=== PATIENT | female | born 1985 | race African-American/Black ===

== ENCOUNTER 2019-01-17 00:24 | Emergency (ER) | payer MEDICAID ==
[~2019-01-17] VITALS: Ht 154.9 cm; Wt 78.0 kg
[2019-01-17] MEDS ORDERED: ACETAMINOPHEN 325MG TABLET PO ONE (01:30)
[2019-01-17 01:31] LABS: CLARITY URINE CLEAR (CLEAR); COLOR URINE YELLOW (YELLOW); KETONES URINE NEGATIVE (NEGATIVE); LEUKOCYTE ESTERASE URINE 1+ (NEGATIVE); NITRITE URINE NEGATIVE (NEGATIVE); OCCULT BLOOD URINE NEGATIVE (NEGATIVE); PROTEIN URINE NEGATIVE (NEGATIVE); SPECIFIC GRAVITY URINE 1.006 (1.005-1.030); UROBILINOGEN URINE 0.2 E.U./dL (0.2-1.0)
[2019-01-17 01:43] LABS: HEMATOCRIT. 25.7 % (36.0-48.0); HEMOGLOBIN. 7.9 g/dL (12.0-16.0); MEAN CORPUSCULAR HEMOGLOBIN 19.9 pg (28.0-32.0); MEAN CORPUSCULAR VOLUME 64.7 fL (81.0-99.0); MEAN PLATELET VOLUME 6.5 fl (7.4-10.4); PLATELET 429 x1000/uL (130-400); RED BLOOD CELL COUNT 3.98 mill/uL (4.2-5.4); RED CELL DISTRIBUTION WIDTH 23.1 % (11.6-14.6)
[2019-01-17 01:50] LABS: CHLORIDE 110 mEq/L (98-107)
[2019-01-17 01:52] LABS: HCG SCREEN NEGATIVE
[2019-01-17 02:51] LABS: PLATELET ESTIMATE SLIGHTLY INCREASED
[2019-01-17 03:02] VITALS: BP 115/62
== END 2019-01-17 03:07 | disposition home or self-care (01) ==
LOC: ER 00:24
DX: D64.9 Anemia, unspecified (principal); N39.0 Urinary tract infection, site not specified; Z98.890 Other specified postprocedural states
CPT/HCPCS: 36415; 80048; 84703; 99283

== ENCOUNTER 2019-12-15 18:32 | Emergency (ER) | payer MEDICAID ==
[~2019-12-15] VITALS: Ht 157.5 cm; Wt 82.0 kg
[2019-12-15] MEDS ORDERED: IBUPROFEN 600MG TABLET PO ONE (19:30)
[2019-12-15] MEDS ORDERED: LIDOCAINE HCL/PF 1% 10 MG/ML 5ML VIAL IJ ONE (19:30)
[2019-12-15] MEDS ORDERED: AMOXICILLIN/POTASSIUM CLAVULANATE 875/125MG TAB PO ONE (19:30)
[2019-12-15 20:21] VITALS: BP 125/69
== END 2019-12-15 20:22 | disposition home or self-care (01) ==
LOC: ER 18:32
DX: H60.91 Unspecified otitis externa, right ear (principal); L02.811 Cutaneous abscess of head [any part, except face]
CPT/HCPCS: 10060; 99283; J3490

== ENCOUNTER 2020-04-23 21:56 | Emergency (ER) | payer MEDICAID ==
[~2020-04-23] VITALS: Ht 157.5 cm; Wt 79.0 kg
[2020-04-23] MEDS ORDERED: ACETAMINOPHEN 650MG/20.3ML UDC PO ONE (23:15)
[2020-04-23 23:39] LABS: CLARITY URINE CLOUDY (CLEAR); COLOR URINE YELLOW (YELLOW); KETONES URINE NEGATIVE (NEGATIVE); LEUKOCYTE ESTERASE URINE TRACE (NEGATIVE); NITRITE URINE NEGATIVE (NEGATIVE); OCCULT BLOOD URINE NEGATIVE (NEGATIVE); PROTEIN URINE TRACE (NEGATIVE); SPECIFIC GRAVITY URINE 1.038 (1.005-1.030)
[2020-04-23 23:43] LABS: HEMATOCRIT. 28.3 % (36.0-48.0); HEMOGLOBIN. 9.2 g/dL (12.0-16.0); MEAN CORPUSCULAR HEMOGLOBIN 22.5 pg (28.0-32.0); MEAN CORPUSCULAR VOLUME 68.8 fL (81.0-99.0); MEAN PLATELET VOLUME 7.1 fl (7.4-10.4); PLATELET 386 x1000/uL (130-400); RED BLOOD CELL COUNT 4.11 mill/uL (4.2-5.4); RED CELL DISTRIBUTION WIDTH 23.7 % (11.6-14.6)
[2020-04-23 23:52] LABS: CHLORIDE 106 mEq/L (98-107)
[2020-04-24 00:15] LABS: B-HCG QUANTITATIVE 60928 mIU/mL (<3)
[2020-04-24 00:25] LABS: PLATELET ESTIMATE NORMAL
[2020-04-24 01:59] VITALS: BP 126/70
== END 2020-04-24 03:00 | disposition home or self-care (01) ==
LOC: ER 21:56
DX: O23.41 Unspecified infection of urinary tract in pregnancy, first trimester (principal); O99.011 Anemia complicating pregnancy, first trimester; Z3A.14 14 weeks gestation of pregnancy; Z98.890 Other specified postprocedural states
CPT/HCPCS: 36415; 76801; 80053; 81003; 81025; 84702; 85025; 86850; 86900; 93005; 99285

== ENCOUNTER 2020-06-05 01:30 | Emergency (ER) | payer MEDICAID ==
[~2020-06-05] VITALS: Ht 154.9 cm; Wt 89.0 kg
[2020-06-05 02:47] LABS: HEMATOCRIT. 24.8 % (36.0-48.0); HEMOGLOBIN. 7.7 g/dL (12.0-16.0); MEAN CORPUSCULAR HEMOGLOBIN 21.8 pg (28.0-32.0); MEAN CORPUSCULAR VOLUME 70.4 fL (81.0-99.0); MEAN PLATELET VOLUME 7.1 fl (7.4-10.4); PLATELET 337 x1000/uL (130-400); RED BLOOD CELL COUNT 3.53 mill/uL (4.2-5.4); RED CELL DISTRIBUTION WIDTH 20.5 % (11.6-14.6)
[2020-06-05 02:50] LABS: CHLORIDE 108 mEq/L (98-107)
[2020-06-05 03:01] LABS: CLARITY URINE CLOUDY (CLEAR); COLOR URINE YELLOW (YELLOW); KETONES URINE NEGATIVE (NEGATIVE); LEUKOCYTE ESTERASE URINE 1+ (NEGATIVE); NITRITE URINE NEGATIVE (NEGATIVE); OCCULT BLOOD URINE NEGATIVE (NEGATIVE); PROTEIN URINE NEGATIVE (NEGATIVE); SPECIFIC GRAVITY URINE 1.029 (1.005-1.030); UROBILINOGEN URINE 0.2 E.U./dL (0.2-1.0)
[2020-06-05] MEDS ORDERED: CEPHALEXIN 250MG CAPSULE PO ONE (03:15)
[2020-06-05 04:40] VITALS: BP 119/71
[2020-06-05 14:43] LABS: PLATELET ESTIMATE NORMAL
== END 2020-06-05 04:59 | disposition home or self-care (01) ==
LOC: ER 01:30
DX: O23.31 Infections of other parts of urinary tract in pregnancy, first trimester (principal); O23.91 Unspecified genitourinary tract infection in pregnancy, first trimester; Z3A.14 14 weeks gestation of pregnancy; Z98.890 Other specified postprocedural states
CPT/HCPCS: 36415; 80053; 81003; 85025; 93005; 99284

== ENCOUNTER 2020-06-10 20:20 | Emergency (ER) | payer MEDICAID ==
[~2020-06-10] VITALS: Ht 157.5 cm; Wt 87.0 kg
[2020-06-10] MEDS ORDERED: ACETAMINOPHEN 325MG TABLET PO ONE (21:30)
[2020-06-10 22:00] LABS: BASOPHILS % 0.4 % (0.0-2.0); HEMATOCRIT. 27.3 % (36.0-48.0); HEMOGLOBIN. 8.5 g/dL (12.0-16.0); LYMPHOCYTES % 18.8 % (20.0-50.0); MEAN CORPUSCULAR HEMOGLOBIN 22.3 pg (28.0-32.0); MEAN CORPUSCULAR VOLUME 71.9 fL (81.0-99.0); MEAN PLATELET VOLUME 7.1 fl (7.4-10.4); MONOCYTES % 5.2 % (2.0-8.0); NEUTROPHILS % 73.6 % (40.0-76.0); PLATELET 362 x1000/uL (130-400); RED CELL DISTRIBUTION WIDTH 20.4 % (11.6-14.6)
[2020-06-10 22:06] LABS: CHLORIDE 107 mEq/L (98-107)
[2020-06-10 22:39] LABS: B-HCG QUANTITATIVE 16384 mIU/mL (<3)
[2020-06-11 04:25] VITALS: BP 111/68
== END 2020-06-11 04:39 | disposition home or self-care (01) ==
LOC: ER 20:20
DX: O26.892 Other specified pregnancy related conditions, second trimester (principal); Z3A.20 20 weeks gestation of pregnancy; Z98.890 Other specified postprocedural states
CPT/HCPCS: 36415; 76805; 80053; 84702; 85025; 86850; 86900; 93005; 99285

== ENCOUNTER 2021-10-22 23:15 | Emergency (ER) | payer MEDICAID, OTHER ==
[~2021-10-22] VITALS: Ht 157.5 cm; Wt 96.7 kg
[2021-10-23 02:08] LABS: HEMATOCRIT. 27.3 % (36.0-48.0); HEMOGLOBIN. 7.9 g/dL (12.0-16.0); MEAN CORPUSCULAR HEMOGLOBIN 18.5 pg (28.0-32.0); MEAN PLATELET VOLUME 7.3 fl (7.4-10.4); PLATELET 433 x1000/uL (130-400); RED BLOOD CELL COUNT 4.27 mill/uL (4.2-5.4); RED CELL DISTRIBUTION WIDTH 21.7 % (11.6-14.6)
[2021-10-23 02:15] LABS: PLATELET ESTIMATE NORMAL
[2021-10-23 02:16] LABS: CHLORIDE 109 mEq/L (98-107)
[2021-10-23] MEDS ORDERED: PROT20 MT (02:55)
[2021-10-23 03:21] VITALS: BP 117/63
== END 2021-10-23 03:22 | disposition home or self-care (01) ==
LOC: ER 23:15
DX: K29.70 Gastritis, unspecified, without bleeding (principal); D64.9 Anemia, unspecified; R01.1 Cardiac murmur, unspecified; Z98.890 Other specified postprocedural states
CPT/HCPCS: 36415; 80053; 85025; 86850; 86900; 99283

== ENCOUNTER 2022-04-02 15:02 | Emergency (ER) | payer MEDICAID, OTHER ==
[~2022-04-02] VITALS: Ht 157.5 cm; Wt 91.0 kg
[~2022-04-02 15:02] MED LIST: PROT20 MT
[2022-04-02] MEDS ORDERED: LIDOCAINE HCL 1% 20ML VIAL (Pyxis) INJ INFIL ONE (20:45)
[2022-04-02] MEDS ORDERED: LIDOCAINE HCL 1% 10 MG/ML 10ML VIAL IJ NR (20:45)
[2022-04-02] MEDS ORDERED: CEPHALEXIN 250MG CAPSULE PO ONE (21:30)
[2022-04-02] MEDS ORDERED: ACETAMINOPHEN 325MG TABLET PO ONE (21:30)
[2022-04-02] MEDS ORDERED: IBUPROFEN 400MG TABLET PO ONE (21:30)
[2022-04-02] MEDS ORDERED: SULFAMETHOXAZOLE/TRIMETHOPRIM 800/160MG TABLET PO ONE (21:30)
[2022-04-02] MEDS ORDERED: IBUP-2028 MT (21:43)
[2022-04-02] MEDS ORDERED: SULF1TAB48 MT (21:43)
[2022-04-02] MEDS ORDERED: TOPUD PO (21:43)
[2022-04-02] MEDS ORDERED: CEPH500C2 MT (21:43)
[2022-04-02 21:50] VITALS: BP 124/65
== END 2022-04-02 21:52 | disposition home or self-care (01) ==
LOC: ER 15:02
DX: L02.11 Cutaneous abscess of neck (principal); D64.9 Anemia, unspecified; Z98.890 Other specified postprocedural states
CPT/HCPCS: 10060; 81025; 99284; J3490; Z7610

== ENCOUNTER 2022-04-12 18:20 | Emergency (ER) | payer MEDICAID ==
[~2022-04-12] VITALS: Ht 157.5 cm; Wt 91.0 kg
[~2022-04-12 18:20] MED LIST changes: +CEPH500C2 MT; +IBUP-2028 MT; +SULF1TAB48 MT; +TOPUD PO
[2022-04-12 19:09] VITALS: BP 123/79
== END 2022-04-12 21:30 | disposition left against medical advice (07) ==
LOC: ER 18:20
DX: R68.89 Other general symptoms and signs (principal); D64.9 Anemia, unspecified; Z98.890 Other specified postprocedural states
CPT/HCPCS: 99281

== ENCOUNTER 2023-08-28 21:37 | Emergency (ER) | payer MEDICAID ==
[~2023-08-28] VITALS: Ht 157.5 cm; Wt 96.5 kg
[2023-08-28 21:59] VITALS: O2SAT 100
[2023-08-28] MEDS ORDERED: ACET-2708 MT (23:42)
[2023-08-28] MEDS ORDERED: LIDO700A15 TP (23:45)
[2023-08-28] MEDS: KETOROLAC 60MG/2ML VIAL IM ONE (23:54)
[2023-08-28] MEDS: ACETAMINOPHEN 325MG TABLET PO ONE (23:54)
[2023-08-29] VITALS: BP 118/75; PULSE 97; RESP 18; TEMP 98.6
== END 2023-08-29 00:59 | disposition home or self-care (01) ==
LOC: ER 21:37
DX: R51.9 Headache, unspecified (principal); D64.9 Anemia, unspecified; Z98.890 Other specified postprocedural states; Z79.899 Other long term (current) drug therapy
CPT/HCPCS: 99283; 81025; 96372; J1885